=== PATIENT | female | born 1945 | race Two or more races ===

== ENCOUNTER → 2017-04-17 | Outpatient (CLI) | payer MEDICARE, OTHER ==
[~2017-04-17] MED LIST: ATOR40TA21 PO; CHOL100012 PO; ESTR0.6256 PO; MULT-754 PO; VALS1TAB PO
--- NOTE | 2017-04-17 10:29 | RADRPT ---
PROCEDURE: XR right knee. CLINICAL INDICATION: Knee pain. TECHNIQUE: AP weightbearing, lateral weightbearing and sunrise views are available for review. COMPARISON: 07/03/2014 FINDINGS: There is a total knee replacement. There is no evidence of loosening of the prosthesis. There is no evidence of hardware failure. The osseous structures are normal in mineralization, architecture and alignment No acute fracture or dislocation is seen.No osseous lesions are identified. The soft tiss ues are unremarkable . IMPRESSION: Unremarkable total knee replacement. RPTAT: [facility] .Piter Loya MD, MD Date Time Electronically viewed and signed by .Piter Loya MD, on 04/17/2017 10:29 .B/
--- NOTE | 2017-04-17 10:30 | RADRPT ---
PROCEDURE: XR pelvis / bilateral hips. CLINICAL INDICATION: Hip pain TECHNIQUE: AP pelvis/AP and lateral right and left hip views performed COMPARISON: No prior studies are available for comparison. FINDINGS: There is mild to moderate bilateral hip osteoarthrosis. This is associated with joint space narrowin g, subchondral sclerosis and osteophytosis. There is normal mineralization. No fractures or osseou s lesions are identified. The soft tissues are unremarkable. IMPRESSION: Mild to moderate bilateral hip osteoarthrosis. RPTAT: [facility] .Piter Loya MD, MD Date Time Electronically viewed and signed by .Piter Loya MD, on 04/17/2017 10:30 .B/
--- NOTE | 2017-04-17 10:34 | RADRPT ---
PROCEDURE: XR left knee. CLINICAL INDICATION: Knee pain TECHNIQUE: AP weightbearing, PA weightbearing, lateral weightbearing and sunrise views are availab le for review. COMPARISON: None available FINDINGS: There is mild to moderate osteoarthrosis involving the medial tibial femoral compartment (joint spac e narrowing and minimal osteophytosis) and mild osteoarthrosis involving the patellofemoral compartm ent (osteophytosis). There is otherwise normal mineralization, architecture and alignment. No fractures are identified. No osseous lesions are identified. The soft tissues are unremarkable. IMPRESSION: Mild to moderate osteoarthrosis involving the medial tibial femoral compartment (joint space narrowi ng and minimal osteophytosis) and mild osteoarthrosis involving the patellofemoral compartment (oste ophytosis). RPTAT: [facility] .Piter Loya MD, MD Date Time Electronically viewed and signed by .Piter Loya MD, on 04/17/2017 10:34 .B/
== END | disposition home or self-care (01) ==
LOC: HKI 08:24
PROVIDERS: ATTEND Orthopaedic Surgery
DX: M25.562 Pain in left knee (principal); M16.0 Bilateral primary osteoarthritis of hip; M17.12 Unilateral primary osteoarthritis, left knee; Z96.651 Presence of right artificial knee joint
CPT/HCPCS: 73523; 73562; 73564; G0463